=== PATIENT | female | born 1990 | race Caucasian/White ===

== ENCOUNTER 2016-05-22 16:19 | Emergency (ER) | payer BC, MEDICAID ==
[2016-05-22 17:48] VITALS: BP 124/61
--- NOTE | 2016-05-24 15:13 | UC ---
Sherwin Norris SooYoung, scribed for Lise Parada MD on 05/22/16 at 1716 . Complaint Female HPI - HPI Summary HPI Summary: A 26 y/o 7-week F presents to [facility] with c/o vaginal bleeding acute onset today. The discharge was bright red, has resolved and is back to being rust-colored. Pt has been having rust-colored spotting for the past few days and was seen at [place] [facility] on 05/17/16. Associated sx: diarrhea, mild abd cramping. Denies: dysuria, gestational diabetes. /A1. Secondary complaint of rash near L axilla onset about one week. [facility]: 04/04/2016. PSHx: back lipomas. - History Of Current Complaint Chief Complaint: UCGU Stated Complaint: 7 WKS AND SPOTTING Hx Obtained From: Patient Hx Last Menstrual Period: 12/21/15 Pain Intensity: 1 Pain Scale Used: 0-10 Numeric - Allergies/Home Medications Allergies/Adverse Reactions: Allergies Allergy/AdvReac Type Severity Reaction Status Date / Time No Known Allergies Allergy Verified 05/22/16 16:41 Home Medications: Home Medications Vitamin TAB* 1 tab PO DAILY 05/22/16 [History Confirmed 05/22/16] PMH/Surg Hx/FS Hx/Imm Hx Previously Healthy: No Endocrine History Of: Denies: Diabetes, Thyroid Disease Cardiovascular History Of: Denies: Cardiac Disorders, Hypertension, Pacemaker/ICD Respiratory History Of: Reports: Bronchitis Denies: COPD, Asthma GI/ History Of: Denies: Ulcer, Renal Disease Neurological History Of: Reports: Seizures Psychological History Of: Reports: Anxiety Cancer History Of: Denies: Breast Cancer - Surgical History Surgical History: Yes Surgery Procedure, Year, and Place: 06/17 IN [facility] LIPOMA REMOVED ON LEFT SIDE - Family History Known Family History: Positive: Hypertension, Diabetes, Other - copd Family History: NON CONTRIBUTORY - Social History Occupation: Unemployed Lives: With Family Alcohol Use: None Substance Use Type: None Smoking Status (MU): Former Smoker Type: Cigars Amount Used/How Often: "1 from time to time" Have You Smoked in the Last Year: Yes - Immunization History Most Recent Influenza Vaccination: never Most Recent Tetanus Shot: unsure Review of Systems Constitutional: Negative Skin: Rash - near L axilla ENT: Negative Respiratory: Negative Cardiovascular: Negative Gastrointestinal: Abdominal Pain - mild cramping, Diarrhea Genitourinary: Negative, Other - bright red vaginal discharge Motor: Negative Neurovascular: Negative Musculoskeletal: Negative Neurological: Negative Psychological: Negative All Other Systems Reviewed And Are Negative: Yes Physical Exam Triage Information Reviewed: Yes Appearance: Well-Nourished Vital Signs: Initial Vital Signs Temp 99.3 F 05/22/16 16:36 Pulse 78 05/22/16 16:36 Resp 16 05/22/16 16:36 BP 108/69 05/22/16 16:36 Pulse Ox 100 05/22/16 16:36 Vital Signs Reviewed: Yes Eye Exam: Normal ENT Exam: Normal Neck exam: Normal Respiratory Exam: Normal Respiratory: Positive: Chest non-tender, Lungs clear, Normal breath sounds, No respiratory distress, No accessory muscle use Cardiovascular Exam: Normal Cardiovascular: Positive: RRR, No Murmur, Pulses Normal, Brisk Capillary Refill Abdominal Exam: Normal - mild mid pelvic tenderness, no r/g. no cvat Bowel Sounds: Positive: Present Musculoskeletal Exam: Normal Neurological Exam: Normal Psychological Exam: Normal Skin Exam: Normal - Additional Comments Appearance: Well-Nourished Eye Exam: Normal ENT Exam: Normal Neck exam: Normal, no adenopathy appreciated Respiratory Exam: Chest non-tender, Lungs clear, Normal breath sounds, No respiratory distress, No accessory muscle use Cardiovascular Exam: Normal Cardiovascular: RRR, No Murmur, Pulses Normal - sitting up. heart rate correlates w left radial pulse, Brisk Capillary Refill Abdominal Exam: MILD TENDERNESS SUPRAPUBICALLY. Abdomen Description: No organomegaly, Soft Bowel Sounds: Present Musculoskeletal Exam: Normal Musculoskeletal: Strength Intact Neurological Exam: Normal: nonfocal, grossly intact Psychological Exam: Normal: conversing easily and appropriately Skin Exam: CIRCUMSCRIBED RED, NON-BLANCHING, DRY ERUPTION. SUSPICIOUS OF RINGWORM. Complaint Female Dx - Course Course Of Treatment: ucg: positive. UA: Negative, blood: ++, pH: 5, specific gravity: 1.005. Pt will need further evaluation / management that are needed in the ED. She does not want to go to [facility], but will go to [facility]. Pt expressly declined EMS, states she will drive to [facility]. Pt was instructed for rash to be addressed per [facility] / PCP. AMA signed (ems). I called the ED at [facility] to advise. Ms. Ramírez expresses some frustration about having to go to the ED, but also expresses understanding and agreement. Questions answered to the best of my ability. - Differential Dx/Diagnosis Provider Diagnoses: vag bleed - Physician Notifications Discussed Patient Care With: Spoke with MARIELA Connors at [facility]. Time Discussed With Above Provider: 17:24 Instructed by Provider To: Transfer Discharge - Discharge Plan Condition: Guarded Disposition: AGAINST MEDICAL ADVICE Discharge Disposition Comment: [facility] by car Referrals: Cr Barr MD [Primary Care Provider] - The documentation as recorded by the Sherwin padilla SooYoung accurately reflects the service I personally performed and the decisions made by me, Lise Parada MD.
== END 2016-05-22 17:25 | disposition left against medical advice (07) ==
LOC: UCEAST 16:19
DX: O20.9 Hemorrhage in early pregnancy, unspecified (principal); Z3A.01 Less than 8 weeks gestation of pregnancy; Z72.0 Tobacco use
CPT/HCPCS: 81002; 81025; 99212; G0463

== ENCOUNTER 2016-07-13 17:09 | Emergency (ER) | payer BC ==
[2016-07-13 17:37] VITALS: BP 116/69
--- NOTE | 2016-07-13 17:47 | UC ---
Laceration HPI - HPI Summary HPI Summary: Holding glass bowl when it broke. Sustained partial skin avulsion and laceration to palm of R hand. Last Tdap in 2009, pt does not want immunization today. - History Of Current Complaint Stated Complaint: HAND LACERATION Hx Obtained From: Patient Laceration Location: Hand Mechanism Of Injury: Sharp Trauma Onset/Duration: Sudden Onset Severity: Mild Aggravating Factors: Nothing - Allergies/Home Medications Allergies/Adverse Reactions: Allergies Allergy/AdvReac Type Severity Reaction Status Date / Time No Known Allergies Allergy Verified 07/13/16 17:38 Home Medications: Home Medications NK [No Home Medications Reported] 07/13/16 [History Confirmed 07/13/16] PMH/Surg Hx/FS Hx/Imm Hx Endocrine History Of: Denies: Diabetes, Thyroid Disease Cardiovascular History Of: Denies: Cardiac Disorders, Hypertension, Pacemaker/ICD Respiratory History Of: Reports: Bronchitis Denies: COPD, Asthma GI/ History Of: Denies: Ulcer, Renal Disease Neurological History Of: Reports: Seizures Psychological History Of: Reports: Anxiety Cancer History Of: Denies: Breast Cancer - Surgical History Surgical History: Yes Surgery Procedure, Year, and Place: 06/17 IN [facility] LIPOMA REMOVED ON LEFT SIDE - Family History Known Family History: Positive: Hypertension, Diabetes, Other - copd Family History: NON CONTRIBUTORY - Social History Lives: With Family Alcohol Use: Occasionally Substance Use Type: None Smoking Status (MU): Current Some Day Smoker Type: Cigars Amount Used/How Often: "1 from time to time" Have You Smoked in the Last Year: Yes - Immunization History Most Recent Influenza Vaccination: never Most Recent Tetanus Shot: unsure Review of Systems Constitutional: Negative Skin: Other - R hand lac Eyes: Negative ENT: Negative Respiratory: Negative Cardiovascular: Negative Gastrointestinal: Negative Genitourinary: Negative Motor: Negative Neurovascular: Negative Musculoskeletal: Negative Neurological: Negative Psychological: Negative All Other Systems Reviewed And Are Negative: Yes Physical Exam Triage Information Reviewed: Yes Appearance: Well-Appearing, No Pain Distress, Well-Nourished Vital Signs: Initial Vital Signs Temp 99.0 F 07/13/16 17:29 Pulse 96 07/13/16 17:29 Resp 22 07/13/16 17:29 BP 116/69 07/13/16 17:29 Pulse Ox 98 07/13/16 17:29 Vital Signs Reviewed: Yes Eye Exam: Normal Eyes: Positive: Conjunctiva Clear ENT Exam: Normal ENT: Positive: Normal ENT inspection, Hearing grossly normal, Pharynx normal, TMs normal Dental Exam: Normal Neck exam: Normal Neck: Positive: Supple, Nontender, No Lymphadenopathy Respiratory Exam: Normal Respiratory: Positive: Chest non-tender, Lungs clear, Normal breath sounds, No respiratory distress, No accessory muscle use Cardiovascular Exam: Normal Cardiovascular: Positive: RRR, No Murmur Musculoskeletal Exam: Normal Musculoskeletal: Positive: Strength Intact, ROM Intact Neurological Exam: Normal Neurological: Positive: Alert Psychological Exam: Normal Skin Exam: Other - 2cm partial skin avulsion, 1.5cm lac R palm of hand Laceration Repair - Laceration Repair 1 Description: Linear Laceration Size After Repair: Length (cm) - 1.5 Type Injection: Local Anesthesia Used: 2.0% Lido Cleansing Completed Via Routine Prep: Yes Irrigation With Pressure Irrigation Device: Yes Closure Material: Sutures Closure Method: Single Layer Suture Of: Skin Suture Type: Nylon - #5 5-0 Laceration Course/Dx - Differential Dx - Laceration/Wound Provider Diagnoses: R hand laceration repair Discharge - Discharge Plan Condition: Stable Disposition: HOME Additional Instructions: Please come back in 7 days for suture removal. Come back sooner if there is redness, swelling, increasing pain, or streaking from the area.
[2016-07-13] MEDS ORDERED: Lidocaine 2% PF* 5 ML VIAL ONE (17:48)
== END 2016-07-13 18:16 | disposition home or self-care (01) ==
LOC: UCEAST 17:09
DX: S61.411A Laceration without foreign body of right hand, initial encounter (principal); W25.XXXA Contact with sharp glass, initial encounter; Y93.9 Activity, unspecified; Y92.9 Unspecified place or not applicable; Z72.0 Tobacco use
CPT/HCPCS: 12002; 99211; G0463

== ENCOUNTER 2016-07-22 11:00 | Emergency (ER) | payer BC | END 2016-07-22 11:53 | disposition left against medical advice (07) | LOC: UCEAST 11:00 | DX: Z48.02 Encounter for removal of sutures (principal); Z53.21 Procedure and treatment not carried out due to patient leaving prior to being seen by health care provider ==

== ENCOUNTER 2016-08-16 19:48 | Emergency (ER) | payer BC, MEDICAID ==
[2016-08-16 20:24] VITALS: BP 118/59
[2016-08-16] MEDS ORDERED: Albuterol HFA INHALER* 8 gm MDI INH ONE (20:52)
[2016-08-16] MEDS ORDERED: predniSONE TAB* 20 MG PO ONE (20:52)
--- NOTE | 2016-08-16 20:58 | UC ---
Respiratory Complaint HPI - HPI Summary HPI Summary: patient has had increase SOB over the past few weeks, now she has trough breatheing with exertion - History of Current Complaint Chief Complaint: UCGeneralIllness Stated Complaint: CHEST CONGESTION Time Seen by Provider: 08/16/16 20:45 Hx Obtained From: Patient Hx Last Menstrual Period: 07/22/16 ?: No Onset/Duration: Sudden Onset, Lasting Weeks Timing: Constant Severity Initially: Moderate Severity Currently: Moderate Aggravating Factors: Exertion, Deep Breaths, Recumbent Position Alleviating Factors: Bronchodilator Associated Signs And Symptoms: Positive: Wheezing - Allergies/Home Medications Allergies/Adverse Reactions: Allergies Allergy/AdvReac Type Severity Reaction Status Date / Time No Known Allergies Allergy Verified 07/13/16 17:38 PMH/Surg Hx/FS Hx/Imm Hx Previously Healthy: Yes Endocrine History Of: Denies: Diabetes, Thyroid Disease Cardiovascular History Of: Denies: Cardiac Disorders, Hypertension, Pacemaker/ICD Respiratory History Of: Reports: Bronchitis Denies: COPD, Asthma GI/ History Of: Denies: Ulcer, Renal Disease Neurological History Of: Reports: Seizures Psychological History Of: Reports: Anxiety Cancer History Of: Denies: Breast Cancer - Surgical History Surgical History: Yes Surgery Procedure, Year, and Place: 06/17 IN [facility] LIPOMA REMOVED ON LEFT SIDE - Family History Known Family History: Positive: Hypertension, Diabetes, Other - copd Family History: NON CONTRIBUTORY - Social History Alcohol Use: Occasionally Substance Use Type: None Smoking Status (MU): Current Some Day Smoker Type: Cigars Amount Used/How Often: "1 from time to time" Have You Smoked in the Last Year: Yes - Immunization History Most Recent Influenza Vaccination: never Most Recent Tetanus Shot: unsure Review of Systems Constitutional: Negative Skin: Negative Eyes: Negative ENT: Negative Respiratory: Shortness Of Breath, Cough Cardiovascular: Negative Gastrointestinal: Negative Genitourinary: Negative Motor: Negative Neurovascular: Negative Musculoskeletal: Negative Neurological: Negative Psychological: Negative All Other Systems Reviewed And Are Negative: Yes Physical Exam Triage Information Reviewed: Yes Appearance: Well-Appearing, Well-Nourished, Pain Distress Vital Signs: Initial Vital Signs Temp 99.1 F 08/16/16 20:19 Pulse 85 08/16/16 20:19 Resp 18 08/16/16 20:19 BP 118/59 08/16/16 20:19 Pulse Ox 99 08/16/16 20:19 Vital Signs Reviewed: Yes Eye Exam: Normal Eyes: Positive: Conjunctiva Clear ENT: Positive: Hearing grossly normal, Pharyngeal erythema, TM bulging Dental Exam: Normal Neck exam: Normal Neck: Positive: Supple, Nontender, No Lymphadenopathy Respiratory: Positive: Chest non-tender, No accessory muscle use, Respiratory distress - mild, Decreased breath sounds, Wheezing, Inspiration Cardiovascular Exam: Normal Cardiovascular: Positive: RRR, No Murmur, Pulses Normal Abdominal Exam: Normal Abdomen Description: Positive: Nontender, No Organomegaly, Soft Bowel Sounds: Positive: Present Musculoskeletal Exam: Normal Musculoskeletal: Positive: Strength Intact, ROM Intact, No Edema Neurological Exam: Normal Neurological: Positive: Alert, Muscle Tone Normal Psychological Exam: Normal Skin Exam: Normal UC Diagnostic Evaluation - Laboratory O2 Sat by Pulse Oximetry: 99 Respiratory Course/Dx - Course Course Of Treatment: hx obtained, exam performed, meds reviewed, prednisone and albuterol prescribed. - Differential Dx/Diagnosis Differential Diagnosis/HQI/PQRI: Asthma, Bronchitis, Influenza, Laryngitis, Sinusitis Provider Diagnoses: bronchospasm Discharge - Discharge Plan Condition: Stable Disposition: HOME Prescriptions: predniSONE TAB* [Deltasone TAB*] 40 mg PO DAILY #12 tab Patient Education Materials: Bronchospasm (ED) Forms: *Work Release Additional Instructions: 1. take the medications as prescribed. 2. Follow up with any worsening symptoms
== END 2016-08-16 21:00 | disposition home or self-care (01) ==
LOC: UCEAST 19:48
DX: J98.01 Acute bronchospasm (principal); R56.9 Unspecified convulsions; F41.9 Anxiety disorder, unspecified; F17.210 Nicotine dependence, cigarettes, uncomplicated
CPT/HCPCS: 99212; A9270-GY; G0463; J7512

== ENCOUNTER 2016-12-18 | Emergency (ER) | payer BC, MEDICAID, OTHER ==
[2016-12-18] MEDS ORDERED: Tetan/Diph/Pertus SYR(Tdap)* 0.5 ML SYR(BOOSTRIX) use SYR IM ONE (02:51)
[2016-12-18] MEDS ORDERED: Lidocaine 1% MDV 20 ML INJ ONE (02:55)
[2016-12-18] MEDS ORDERED: Lidocaine 1% INJ* 10 MG/ML 30 ML SDV ONE (05:03)
[2016-12-18] MEDS ORDERED: Acetaminophen TAB* 325 MG PO ONE (06:36)
--- NOTE | 2016-12-18 06:38 | ED ---
Violette Norris Rebecca, scribed for Jamison Crabtree MD on 12/18/16 at 0259 . Head Injury - HPI Summary HPI Summary: Pt is a 26 y/o F who is 18-19 weeks who presents to ED s/p fall. At approximately 2300 tonight the pt was arguing with somebody on a set of outdoor stairs. She abruptly turned around to start walking the other direction when she slipped on the steps. Negative LOC. Pt notes vision loss in the L eye immediately after the fall which has resolved. Pt currently c/o mild R lumbar back pain, slight abdominal cramping, and R thumb pain. Abdominal cramping began a few minutes prior to evaluation. Additionally c/o frontal laceration s/ p fall. Denies neck pain. Right hand dominant. Last Tetanus shot unknown. Blood type is O positive. - History Of Current Complaint Chief Complaint: EDGeneral Stated Complaint: HEAD LAC Time Seen by Provider: 12/18/16 02:37 Hx Obtained From: Patient Hx Last Menstrual Period: 07/22/16 Onset/Duration: Traumatic - Fall, Still Present Onset of Pain: Hours, Prior to Arrival Severity Initially: Moderate Pain Intensity: 5 Pain Scale Used: 0-10 Numeric Location of Head Injury: Frontal Aggravating Factor(s): Other: - Nothing Alleviating Factor(s): Other: - Nothing Associated Signs And Symptoms: Other: - R lumbar back pain, slight abdominal cramping and R thumb pain. - Allergies/Home Medications Allergies/Adverse Reactions: Allergies Allergy/AdvReac Type Severity Reaction Status Date / Time No Known Allergies Allergy Verified 12/18/16 00:12 PMH/Surg Hx/FS Hx/Imm Hx Endocrine/Hematology History: Denies: Hx Diabetes, Hx Thyroid Disease Cardiovascular History: Denies: Hx Hypertension, Hx Pacemaker/ICD Respiratory History: Denies: Hx Asthma, Hx Chronic Obstructive Pulmonary Disease (COPD) GI History: Denies: Hx Ulcer History: Denies: Hx Renal Disease Sensory History: Denies: Hx Hearing Aid Neurological History: Reports: Hx Seizures Psychiatric History: Reports: Hx Anxiety Denies: Hx Panic Disorder - Cancer History Hx Chemotherapy: No Hx Radiation Therapy: No - Surgical History Surgery Procedure, Year, and Place: 06/17 IN [facility] LIPOMA REMOVED ON LEFT SIDE Infectious Disease History: No Infectious Disease History: Reports: History Other Infectious Disease - herpes Denies: Hx Clostridium Difficile, Hx Hepatitis, Hx Human Immunodeficiency Virus (HIV), Hx of Known/Suspected MRSA, Hx Shingles, Hx Tuberculosis, Hx Known/ Suspected VRE, Hx Known/Suspected VRSA, Traveled Outside the [place] in Last 30 Days - Family History Known Family History: Positive: Hypertension, Diabetes, Other - copd - Social History Alcohol Use: Occasionally Substance Use Type: Reports: None Smoking Status (MU): Current Some Day Smoker Type: Cigars Amount Used/How Often: "1 from time to time" Have You Smoked in the Last Year: Yes Review of Systems Positive: Other - L eye vision loss - resolved Positive: Other - Mild abdominal cramping Positive: Other - Mild R lumbar back pain, R thumb pain; NEGATIVE: neck pain Positive: Other - Frontal laceration Neurological: Other - NEGATIVE: LOC All Other Systems Reviewed And Are Negative: Yes Physical Exam - Summary Physical Exam Summary: The patient is well-nourished in no acute distress and in no acute pain. The skin is warm and dry and skin color reflects adequate perfusion. HEENT: The head has a 4.5 cm linear laceration on the lfet forehead that extends into the scalp that appears to be down to the subcutaneous fat, about 2 mm wide with no crepitus, no deformity, no smith sign and no racoon sign. The pupils are equal and reactive. The conjunctivae are clear and without drainage. Nares are patent and without drainage. Mouth reveals moist mucous membranes and the throat is without erythema and exudate. The external ears are intact. The ear canals are patent and without drainage. The tympanic membranes are intact with no hemotympanum. Neck is supple with full range of motion and non-tender. There is no reproducible pain. Respiratory: Chest is non-tender. Lungs are clear to auscultation and breath sounds are symmetrical and equal. Cardiovascular: Hear is regular rate and rhythm. There is no murmur or rub auscultated. There is no peripheral edema and pulses are symmetrical and equal. Abdomen: The abdomen is soft and non-tender. It appears that there is a fundal height around the umbilicus. There are normal bowel sounds heard in all four quadrants and there is no organomegaly palpated. Musculoskeletal: Some abrasions on the R side of her lower lumbar area with no reproducible pain. There is no pain in the thoracic or cervical spine. She is not tender over the pelvis. Her thenar eminance on the right humb is markedly edematous with FROM and there morel snot appear to be any ligament laxity on the medial or lateral aspects. There is no stepoff noted and there is good ROM with good light touch sensation. Abrasion and ecchymosis on the R knee but with FROM and pulses are noted distally. There is good capillary refill. There is no peripheral edema or calf tenderness elicited. Neurological: Patient is alert and oriented to person, place and time. The patient has symmetrical motor strength in all four extremities. Psychiatric: The patient has an appropriate affect and does not exhibit any anxiety or depression. Triage Information Reviewed: Yes Vital Signs On Initial Exam: Initial Vitals Temp Pulse Resp BP Pulse Ox 97.8 F 89 16 133/67 97 12/18/16 00:05 12/18/16 00:05 12/18/16 00:05 12/18/16 00:05 12/18/16 00:05 Vital Signs Reviewed: Yes Procedures - Laceration/Wound Repair 1 Location: head - Went down to the galea. The galea was not intacted so could not be repaired. Palpated the scalp and there are no step offs or deformity Description: Linear Anesthesia: 1.0%, Lido Length, Depth and Shape: 1 cm deep, about 0.5 cm wide and 4.5 cm long Closure: Multilayer - Close the subcutaneous area with 4.0 Vicryl x4 interurupted sutures and closed the skin with 5.0 prolene x18 running sutures Suture Type: Prolene - skin closure x18, Vicryl - Subcutaneous closure with 4.0 vicyl x4 Diagnostics - Vital Signs Vital Signs Temp Pulse Resp BP Pulse Ox 12/18/16 00:05 97.8 F 89 16 113/67 97 - Laboratory Lab Statement: Any lab studies that have been ordered have been reviewed, and results considered in the medical decision making process. - Ultrasound No standard instances Ultrasound Interpretation Completed By: Radiologist - Ultrasound interpretation pending, see [employer]. Head Injury Course/Dx Assessment/Plan: Pt is a 26 y/o F who is 18-19 weeks who presents to ED s/p fall. At approximately 2300 tonight the pt was arguing with somebody on a set of outdoor stairs. She abruptly turned around to start walking the other direction when she slipped on the steps. Negative LOC. Pt notes vision loss in the L eye immediately after the fall which has resolved. Pt currently c/o mild R lumbar back pain, slight abdominal cramping, and R thumb pain. Abdominal cramping began a few minutes prior to evaluation. Additionally c/o frontal laceration s/p fall. Denies neck pain. Right hand dominant. Last Tetanus shot unknown. Blood type is O positive. Laceration repair procedure note above. heart tone 132. In ED course, pt received Boostrix. Pt will be D/C to home with Dx of right humb injury, scalp laceration and prenancy with a follow up with her PCP for suture removal pending US results. She understands and agrees. Elevated BP noted and advised to f/u. - Diagnoses Differential Diagnosis/HQI/PQRI: Laceration Provider Diagnoses: Injury of right thumb, Scalp laceration, , abrasion right knee Discharge - Discharge Plan Condition: Stable Disposition: HOME Patient Education Materials: Care For Your Stitches (ED), Laceration (ED), Acute Wound Care (ED) Referrals: Cr Barr MD [Primary Care Provider] - (Follow up in 5 days for suture removal. ) Additional Instructions: Cleanse the wound 2 times per day with soap and water. Apply antibiotic ointment and cold compress/ice. Take Tylenol as directed for pain. Follow up with your primary care physician in 5 days for suture removal. The documentation as recorded by the Violette padilla Rebecca accurately reflects the service I personally performed and the decisions made by , Jamison Crabtree MD.
--- NOTE | 2016-12-18 08:42 | RAD ---
INDICATION: Early . Patient fell. Assess viability. Request for limited patency evaluation. COMPARISON: None TECHNIQUE: Transabdominal imaging was performed as part of a limited evaluation. A anatomic survey was not performed. FINDINGS: There is a single intrauterine gestation in cephalic presentation with confirmation of cardiac activity of 130 bpm. There is movement. The amniotic fluid index is normal measuring 13.3. The cervix is closed. The cervical length is measured approximately 3 cm which may represent underestimation. This can be reassessed at the time of the anatomic survey. The estimated gestational age based on biparietal diameter, head circumference, abdominal circumference, and femur length corresponds to 19 weeks 1 day, 19 weeks 0 day, 18 weeks 2 days, and 18 weeks 2 days resulting in a composite value of 18 weeks 5 days. IMPRESSION: INTRAUTERINE AND 18 WEEKS 5 DAYS WITH CONFIRMATION OF CARDIAC ACTIVITY.
[2016-12-18 09:03] VITALS: BP 105/60
--- NOTE | 2016-12-18 09:45 | ED ---
Jason Norris Alfonso, scribed for Roverto Senior MD on 12/18/16 at 0904 . Progress - Progress Note Progress Note: This patient was signed out from Dr. Crabtree, pending disposition, awaiting US. US reveals INTRAUTERINE AND 18 WEEKS 5 DAYS WITH CONFIRMATION OF CARDIAC ACTIVITY. ED physician has reviewed this radiology report and agrees. The patients condition is stable and will be discharged to home. - Results/Orders Results/Orders: US reveals INTRAUTERINE AND 18 WEEKS 5 DAYS WITH CONFIRMATION OF CARDIAC ACTIVITY. ED physician has reviewed this radiology report and agrees. Course/Dx - Diagnoses Provider Diagnoses: Injury of right thumb, Scalp laceration, , abrasion right knee The documentation as recorded by the odiliaibJason coombs Alfonso accurately reflects the service I personally performed and the decisions made by Parrish barnes Richard L, MD.
== END 2016-12-18 09:33 | disposition home or self-care (01) ==
LOC: ED
DX: S80.211A Abrasion, right knee, initial encounter (principal); S01.01XA Laceration without foreign body of scalp, initial encounter; M54.5 Low back pain; W19.XXXA Unspecified fall, initial encounter; Y93.9 Activity, unspecified; Y92.9 Unspecified place or not applicable; Z72.0 Tobacco use; Z34.92 Encounter for supervision of normal pregnancy, unspecified, second trimester
CPT/HCPCS: 76815; 90471; 90715; 99282; A9270-GY; J2001

== ENCOUNTER → 2017-03-17 19:05 | Emergency (ER) | payer OTHER ==
[~2017-03-17 19:05] MED LIST: Acetaminophen TAB* 325 MG PO ONE; NS 0.9% 1000 ML* 1,000 ML IV SCH
[2017-03-17 21:03] LABS: Hematocrit 39 % (35-47); Mean Corpuscular HGB Conc 34 g/dl (31-36); Mean Corpuscular Hemoglobin 29 pg (27-31); Mean Corpuscular Volume 85 fL (80-97); Mean Platelet Volume 8 um3 (7.4-10.4); Red Blood Count 4.51 10^6/ul (4.0-5.4); Red Cell Distribution Width 13 % (10.5-15); White Blood Count 12.5 10^3/ul (3.5-10.8)
[2017-03-17 21:05] LABS: Urine Bilirubin Negative (Negative); Urine Glucose Negative (Negative); Urine Nitrite Negative (Negative)
[2017-03-17 21:16] LABS: Albumin 3.5 g/dL (3.2-5.2); BUN/Creatinine Ratio 16.1 (8-20); Calcium 9.7 mg/dL (8.6-10.3); EGFR African American 148.5 (>60); EGFR Non-African American 115.5 (>60); Globulin 2.9 g/dL (2-4); Total Bilirubin 0.3 mg/dL (0.2-1.0); Total Protein 6.4 g/dL (6.4-8.9)
[2017-03-17 22:44] VITALS: BP 123/74
--- NOTE | 2017-03-18 01:06 | ED ---
Jason Norris Alfonso, scribed for Alexx Pedroza MD on 03/17/17 at 2244 . Progress - Progress Note Progress Note: This patient was signed out from Dr. Quezada, pending disposition, awaiting US. Reevaluation at 2237: Patients pain is largely unchanged. Pain is in bilateral LQ and is crampy in nature. She does not remember how her contractions felt in the past. Will consult surgery. Will consider transfer for possible abdominal MRI. Consulted Dr. Childress (surgeon) at 2240 who recommended OB consultation and official results of US. Suggests possible period of observation. Consulted Dr. Elliott (OBGYN) at 2246 who was made aware of workup. Will re- contact with official result of NST stress test. Appendix US reveals, per radiologist, There are no masses or collections visualized in the RLQ. The appendix was not visualized. Cannot rule out acute appendicitis. ED physician has reviewed this radiology report and agrees. US reveals, per radiologist, There is a single live injury gestation in cephalic presentation. heart rate 129 BPM. Approximate age by composite US measurements is 31 weeks, one day. Estimated weight 1543 g. movement noted by the US technologist in real-time. Amniotic fluid volume is subjectively adequate. Fundal placenta without abruption or previa. The cervix is closed and is foreshortened measuring 2.1 cm. ED physician has reviewed this radiology report and agrees. Consulted Dr. Elliott (OBGYN) at 0058 who agrees to admit. Informed of tracing results. The patients condition is stable and will be admitted to OB with Dx of uterine contracts. Course/Dx - Diagnoses Provider Diagnoses: Uterine contractions The documentation as recorded by the Jason padilla Alfonso accurately reflects the service I personally performed and the decisions made by Yovany barnes Dong, MD.
--- NOTE | 2017-03-18 07:48 | RAD ---
INDICATION: 37 week patient with abdominal pain. Evaluate for acute appendicitis COMPARISON: None TECHNIQUE: Transverse and longitudinal scans of the right lower quadrant were performed utilizing grayscale and color Doppler imaging. FINDINGS: The appendix is not visualized and therefore acute appendicitis cannot be excluded on the basis of this study. Suggest clinical evaluation and management. There are no masses or fluid collections in the right lower quadrant. IMPRESSION: INDETERMINATE EXAMINATION THE APPENDIX CANNOT BE LOCATED
--- NOTE | 2017-03-18 07:57 | RAD ---
INDICATION: 31 week with lower abdominal pain. Request for limited evaluation. COMPARISON: sonogram December 28, 2016 TECHNIQUE: Real-time transabdominal scans were obtained for the purposes of limited evaluation. This is not a anatomic study. FINDINGS: There is a single intrauterine gestation in cephalic presentation with movement and cardiac activity of 129 beats for minute. Amniotic fluid index is normal. The cervix is closed measuring 2.7 cm. The estimated gestational age based on biparietal diameter, head circumference, abdominal scars, and femur length corresponds to 33 weeks 0 days, 31 weeks 2 days, 30 weeks 2 days, and 29 weeks 4 days resulting a composite value of 31 weeks 1 day. There is been normal interval growth. weight is 3 lbs. 6 oz. IMPRESSION: Intrauterine gestation at 31 weeks 3 days with normal interval growth and confirmation of cardiac activity. Mild foreshortening of the cervical length.
== END | disposition other institution (70) ==
LOC: ED 19:05
DX: O62.9 Abnormality of forces of labor, unspecified (principal); Z3A.31 31 weeks gestation of pregnancy
CPT/HCPCS: 36415; 76705; 76815; 80053; 81003; 85025; 96360; 99282; A9270-GY

== ENCOUNTER 2017-04-03 11:25 | Emergency (ER) | payer OTHER ==
[2017-04-03 15:47] VITALS: BP 114/65
--- NOTE | 2017-04-03 15:56 | UC ---
Respiratory Complaint HPI - HPI Summary HPI Summary: Patient presents with complaints of 1-2 week cough prior to todays visit, she reports that those symptoms resolved. She states last night she developed generalized body aches, and is worried she has the flu. She denies fever, chills , vomiting, diarrhea. She reports she is eigth months , G@,P1, and denies abdominal pain, vaginal discharge or bleeding, dysuria, hematuria. - History of Current Complaint Chief Complaint: UCGeneralIllness Stated Complaint: SINUS CONGESTION, AND ACHES Time Seen by Provider: 04/03/17 15:44 Hx Obtained From: Patient Hx Last Menstrual Period: 07/22/16 Onset/Duration: Gradual Onset, Lasting Days Timing: Constant Severity Initially: Mild Severity Currently: Mild Associated Signs And Symptoms: Positive: Negative - Risk Factors Pulmonary Embolism Risk Factors: Cardiac Risk Factors: Negative Pseudomonas Risk Factors: Negative Tuberculosis Risk Factors: Negative - Allergies/Home Medications Allergies/Adverse Reactions: Allergies Allergy/AdvReac Type Severity Reaction Status Date / Time No Known Allergies Allergy Verified 04/03/17 15:44 PMH/Surg Hx/FS Hx/Imm Hx Previously Healthy: Yes - Surgical History Surgical History: Yes Surgery Procedure, Year, and Place: 06/17 IN [facility] LIPOMA REMOVED ON LEFT SIDE - Family History Known Family History: Positive: Hypertension, Diabetes, Other - copd Family History: NON CONTRIBUTORY - Social History Occupation: Employed Full-time Lives: Alone Alcohol Use: None Substance Use Type: None Smoking Status (MU): Former Smoker Type: Cigars Amount Used/How Often: "1 from time to time" Have You Smoked in the Last Year: Yes Household Exposure Type: Cigarettes - Immunization History Most Recent Influenza Vaccination: never Most Recent Tetanus Shot: unsure Review of Systems Constitutional: Fatigue Skin: Negative Eyes: Negative ENT: Negative Respiratory: Negative Cardiovascular: Negative Gastrointestinal: Negative Genitourinary: Negative Motor: Negative Neurovascular: Negative Musculoskeletal: Myalgia Neurological: Negative Psychological: Negative Is Patient Immunocompromised?: No All Other Systems Reviewed And Are Negative: Yes Physical Exam Triage Information Reviewed: Yes Appearance: Well-Appearing Vital Signs: Initial Vital Signs Temp 97.9 F 04/03/17 15:44 Pulse 103 04/03/17 15:44 Resp 20 04/03/17 15:44 BP 114/65 04/03/17 15:44 Pulse Ox 99 04/03/17 15:44 Vital Signs Reviewed: Yes Eye Exam: Normal ENT Exam: Normal Neck exam: Normal Neck: Positive: 1 Respiratory Exam: Normal Cardiovascular Exam: Normal Skin Exam: Normal UC Diagnostic Evaluation - Laboratory O2 Sat by Pulse Oximetry: 99 Respiratory Course/Dx - Course Course Of Treatment: Patient presents with complaints of generalized fatigue, malaise, x 1 day. she states she is eight months and continues to have good movment. She denies any vaginal discharge, bleeding or dysuria. The Influenza was positive for Influenza A, she was treated with tamiflu, taken out of work for 2 days. She had noramlVS and was discharge home in stable condition. - Differential Dx/Diagnosis Differential Diagnosis/HQI/PQRI: Other - influenza A Provider Diagnoses: influenza a Discharge - Discharge Plan Condition: Stable Disposition: HOME Prescriptions: Oseltamivir CAP* [Tamiflu CAP*] 75 mg PO DAILY #5 cap Patient Education Materials: Influenza (ED) Forms: *Work Release Referrals: Cr Barr MD [Primary Care Provider] -
== END 2017-04-03 16:10 | disposition home or self-care (01) ==
LOC: UCEAST 11:25
DX: O98.513 Other viral diseases complicating pregnancy, third trimester (principal); J10.1 Influenza due to other identified influenza virus with other respiratory manifestations; Z3A.32 32 weeks gestation of pregnancy; Z87.891 Personal history of nicotine dependence
CPT/HCPCS: 87502; 99212; G0463

== ENCOUNTER 2017-05-18 01:49 | Inpatient (IN) | payer OTHER ==
[2017-05-18] MEDS ORDERED: Penicillin G Potassium IV* 5,000,000 UNITS in NS 0.9% 100 ML* 100 ML IVPB ONE (03:00)
[2017-05-18 03:32] LABS: ABS Basophils 0 10^3/ul (0-0.2); ABS Eosinophils 0.1 10^3/ul (0-0.6); ABS Lymphocytes 1.7 10^3/ul (1.0-4.8); ABS Monocytes 0.8 10^3/ul (0-0.8); ABS Neutrophils 12.9 10^3/ul (1.5-7.7); ABS Nucleated RBC 0 10^3/ul; Eosinophil % 0.4 % (0-6); Hematocrit 38 % (35-47); Hemoglobin 12.9 g/dl (12.0-16.0); Mean Corpuscular HGB Conc 34 g/dl (31-36); Mean Corpuscular Hemoglobin 29 pg (27-31); Mean Corpuscular Volume 84 fL (80-97); Mean Platelet Volume 8 um3 (7.4-10.4); Nucleated Red Blood Cells % 0; Platelet Count 257 10^3/ul (150-450); Red Blood Count 4.48 10^6/ul (4.0-5.4); Red Cell Distribution Width 14 % (10.5-15); White Blood Count 15.5 10^3/ul (3.5-10.8)
[2017-05-18] MEDS ORDERED: Witch Hazel PAD* JAR TOPICAL PRN (05:05)
[2017-05-18] MEDS ORDERED: Dibucaine 1% 28.35 GM TUBE PR PRN (05:05)
[2017-05-18] MEDS ORDERED: Glycerin ADULT SUPP PR PRN (05:05)
[2017-05-18] MEDS ORDERED: Ibuprofen TAB* 600 MG ONE (05:27)
[2017-05-18] MEDS ORDERED: Oxytocin in LR* 20 UNITS/1,000 ML BAG IVPB SCH (06:00)
[2017-05-18] MEDS ORDERED: Penicillin G Potassium IV* 2,500,000 UNITS in NS 0.9% 100 ML* 100 ML IVPB SCH (07:30)
[2017-05-18] MEDS: Docusate CAP* 100 MG PO SCH ×3 (09:15→21:00)
[2017-05-18] MEDS: Simethicone TAB* 80 MG TAB.CHEW PO SCH (12:14)
[2017-05-18] MEDS: Ibuprofen TAB* 600 MG PO PRN ×2 (12:14→19:55)
[2017-05-19] MEDS: Ibuprofen TAB* 600 MG PO PRN ×3 (04:58→23:15)
[2017-05-19 08:00] LABS: ABS Basophils 0.1 10^3/ul (0-0.2); ABS Eosinophils 0.1 10^3/ul (0-0.6); ABS Lymphocytes 2.3 10^3/ul (1.0-4.8); ABS Monocytes 0.6 10^3/ul (0-0.8); ABS Neutrophils 8.4 10^3/ul (1.5-7.7); ABS Nucleated RBC 0 10^3/ul; Eosinophil % 0.9 % (0-6); Hematocrit 39 % (35-47); Hemoglobin 12.6 g/dl (12.0-16.0); Lymphocyte % 19.9 % (25-47); Mean Corpuscular HGB Conc 32 g/dl (31-36); Mean Corpuscular Hemoglobin 28 pg (27-31); Mean Corpuscular Volume 89 fL (80-97); Mean Platelet Volume 9 um3 (7.4-10.4); Nucleated Red Blood Cells % 0.1; Platelet Count 181 10^3/ul (150-450); Red Blood Count 4.43 10^6/ul (4.0-5.4); Red Cell Distribution Width 14 % (10.5-15); White Blood Count 11.5 10^3/ul (3.5-10.8)
[2017-05-19] MEDS ORDERED: Ferrous Gluconate TAB* 324 MG TAB PO SCH (09:00)
[2017-05-19] MEDS: Acetaminophen TAB* 325 MG PO PRN ×2 (09:52→17:13)
[2017-05-19] MEDS: Docusate CAP* 100 MG PO SCH ×2 (09:53→18:31)
[2017-05-19 20:33] VITALS: BP 118/64
[2017-05-20] MEDS: Acetaminophen TAB* 325 MG PO PRN ×2 (03:17→07:56)
[2017-05-20] MEDS: Docusate CAP* 100 MG PO SCH (08:42)
== END 2017-05-20 10:49 | disposition home or self-care (01) | DRG 560 ==
LOC: MCHOBOUT 01:49 → MCHOB 02:32
PROVIDERS: ADMIT Midwife; ATTEND Midwife
PROC: 10E0XZZ Delivery of Products of Conception, External Approach (ICD-10-PCS; principal; 2017-05-18)
PROC: 4A1HX4Z Monitoring of Products of Conception, Cardiac Electrical Activity, External Approach (ICD-10-PCS; 2017-05-18)
DX: O69.81X0 Labor and delivery complicated by cord around neck, without compression, not applicable or unspecified (principal); O98.52 Other viral diseases complicating childbirth; O99.824 Streptococcus B carrier state complicating childbirth; B00.9 Herpesviral infection, unspecified; Z3A.39 39 weeks gestation of pregnancy; Z37.0 Single live birth; O71.89 Other specified obstetric trauma
CPT/HCPCS: 36415; 85025; 86850; 86900; 86901; A9270-GY; J2540

== ENCOUNTER 2017-11-29 12:31 | Emergency (ER) | payer BC, MEDICAID, OTHER ==
[2017-11-29 13:23] VITALS: BP 102/71
[2017-11-29] MEDS ORDERED: Azithromycin TAB* 250 MG PO ONE (13:35)
[2017-11-29] MEDS ORDERED: cefTRIAXone VIAL(*) 250 MG VIAL IM ONE (13:35)
[2017-11-29] MEDS ORDERED: Lidocaine 1% MPF* 2 ML VIAL INJ ONE (13:35)
--- NOTE | 2017-11-29 13:48 | ED ---
GI/ HPI - HPI Summary HPI Summary: 27F presents for treatment for gonorrhea. She states her boyfriend was treated for gonorrhea yesterday. She states she has been having vaginal itching for past couple days. She states that she thought she had a yeast infection until her boyfriend got tested. She is also requesting HIV hepatitis, and syphilis testing. no medical conditions. started period two days ago. no dysuria, fever or pelvic pain. structural analysis engineer called and said does not need further testing for vaginal cultures. - History of Current Complaint Chief Complaint: UCGU Time Seen by Provider: 11/29/17 13:25 Stated Complaint: PERSONAL Hx Last Menstrual Period: now Pain Intensity: 0 - Allergy/Home Medications Allergies/Adverse Reactions: Allergies Allergy/AdvReac Type Severity Reaction Status Date / Time No Known Allergies Allergy Verified 11/29/17 13:23 PMH/Surg Hx/FS Hx/Imm Hx Endocrine/Hematology History: Denies: Hx Diabetes, Hx Thyroid Disease Cardiovascular History: Denies: Hx Hypertension, Hx Pacemaker/ICD Respiratory History: Denies: Hx Asthma, Hx Chronic Obstructive Pulmonary Disease (COPD) GI History: Denies: Hx Ulcer History: Denies: Hx Renal Disease Sensory History: Denies: Hx Hearing Aid Neurological History: Reports: Hx Seizures Psychiatric History: Reports: Hx Anxiety Denies: Hx Panic Disorder - Cancer History Hx Chemotherapy: No Hx Radiation Therapy: No - Surgical History Surgery Procedure, Year, and Place: 06/17 IN [facility] LIPOMA REMOVED ON LEFT SIDE Infectious Disease History: No Infectious Disease History: Reports: History Other Infectious Disease - herpes Denies: Hx Clostridium Difficile, Hx Hepatitis, Hx Human Immunodeficiency Virus (HIV), Hx of Known/Suspected MRSA, Hx Shingles, Hx Tuberculosis, Hx Known/ Suspected VRE, Hx Known/Suspected VRSA, Traveled Outside the in Last 30 Days - Family History Known Family History: Positive: Hypertension, Diabetes, Other - copd Family History: NON CONTRIBUTORY - Social History Alcohol Use: None Substance Use Type: Reports: None Smoking Status (MU): Former Smoker Type: Cigars Amount Used/How Often: "1 from time to time" Have You Smoked in the Last Year: Yes Review of Systems Negative: Fever Negative: Chest Pain Negative: Shortness Of Breath Positive: other - vaginal itching All Other Systems Reviewed And Are Negative: Yes Physical Exam Triage Information Reviewed: Yes Vital Signs On Initial Exam: Initial Vitals Temp Pulse Resp BP Pulse Ox 98.4 F 75 18 102/71 99 11/29/17 13:16 11/29/17 13:16 11/29/17 13:16 11/29/17 13:16 11/29/17 13:16 Vital Signs Reviewed: Yes Appearance: Positive: Well-Appearing Skin: Positive: Warm, Dry Head/Face: Positive: Normal Head/Face Inspection Eyes: Positive: Normal, Conjunctiva Clear ENT: Positive: Pharynx normal Respiratory/Lung Sounds: Positive: Clear to Auscultation, Breath Sounds Present Cardiovascular: Positive: Normal, RRR Abdomen Description: Positive: Nontender, Soft Bowel Sounds: Positive: Present Musculoskeletal: Positive: Normal Neurological: Positive: Normal Psychiatric: Positive: Normal Diagnostics - Vital Signs Vital Signs Temp Pulse Resp BP Pulse Ox 11/29/17 13:16 98.4 F 75 18 102/71 99 - Laboratory Lab Statement: Any lab studies that have been ordered have been reviewed, and results considered in the medical decision making process. GIGU Course/Dx - Course Course Of Treatment: 27F presents for treatment for gonorrhea. She states her boyfriend was treated for gonorrhea yesterday. She states she has been having vaginal itching for past couple days. She states that she thought she had a yeast infection until her boyfriend got tested. She is also requesting HIV hepatitis, and syphilis testing. no medical conditions. started period two days ago. no dysuria, fever or pelvic pain. on exam nontender abd. gave rocephin and azithromycin. patient understand and agrees with plan. - Diagnoses Differential Diagnoses - Female: Pelvic Inflammatory Disease, STD, Urinary Tract Infection Provider Diagnoses: Gonorrhea Discharge - Sign-Out/Discharge Documenting (check all that apply): Patient Departure All imaging exams completed and their final reports reviewed: No Studies - Discharge Plan Condition: Good Disposition: HOME Patient Education Materials: Gonorrhea (ED) Referrals: Cr Barr MD [Primary Care Provider] - Additional Instructions: Avoid sex for next 7 days Return to ED if develop fever or any new or worsening symptoms - Billing Disposition and Condition Condition: GOOD Disposition: Home
[2017-11-29] MEDS ORDERED: Lidocaine 1%* 5 ML VIAL ONE (14:05)
== END 2017-11-29 14:40 | disposition home or self-care (01) ==
LOC: UCEAST 12:31
DX: A54.9 Gonococcal infection, unspecified (principal); Z87.891 Personal history of nicotine dependence
CPT/HCPCS: 96372; 99212; A9270-GY; G0463; J0696

== ENCOUNTER → 2018-10-10 02:43 | Emergency (ER) | payer OTHER ==
[~2018-10-10 02:43] MED LIST changes: -Acetaminophen TAB* 325 MG PO ONE; +Clindamycin CAP* 150 MG PO ONE; -NS 0.9% 1000 ML* 1,000 ML IV SCH; +oxyCODONE/Acetamin 5/325 MG* TAB PO ONE
--- NOTE | 2018-10-10 03:31 | ED ---
Throat Pain/Nasal Congestion - HPI Summary HPI Summary: This patient is a 28 year old F presenting to ED with a chief complaint of R top tooth pain since four days ago. Patient has been taking Motrin, but it does not help. The patient rates the pain 8/10 in severity. Symptoms aggravated by nothing. Symptoms alleviated by nothing. Patient denies fever. - History of Current Complaint Chief Complaint: EDDentalPain Time Seen by Provider: 10/10/18 03:22 Hx Obtained From: Patient Onset/Duration: Lasting Days - 4 days ago, Still Present Severity: Severe - Allergies/Home Medications Allergies/Adverse Reactions: Allergies Allergy/AdvReac Type Severity Reaction Status Date / Time No Known Allergies Allergy Verified 10/10/18 03:47 PMH/Surg Hx/FS Hx/Imm Hx Endocrine/Hematology History: Denies: Hx Diabetes, Hx Thyroid Disease Cardiovascular History: Denies: Hx Hypertension, Hx Pacemaker/ICD Respiratory History: Denies: Hx Asthma, Hx Chronic Obstructive Pulmonary Disease (COPD) GI History: Denies: Hx Ulcer History: Denies: Hx Renal Disease Sensory History: Denies: Hx Hearing Aid Neurological History: Reports: Hx Seizures Psychiatric History: Reports: Hx Anxiety Denies: Hx Panic Disorder - Cancer History Hx Chemotherapy: No Hx Radiation Therapy: No - Surgical History Surgery Procedure, Year, and Place: 06/17 IN [facility] LIPOMA REMOVED ON LEFT SIDE Infectious Disease History: No Infectious Disease History: Reports: History Other Infectious Disease - herpes Denies: Hx Clostridium Difficile, Hx Hepatitis, Hx Human Immunodeficiency Virus (HIV), Hx of Known/Suspected MRSA, Hx Shingles, Hx Tuberculosis, Hx Known/ Suspected VRE, Hx Known/Suspected VRSA, Traveled Outside the in Last 30 Days - Family History Known Family History: Positive: Hypertension, Diabetes, Other - copd Family History: NON CONTRIBUTORY - Social History Alcohol Use: None Hx Substance Use: No Substance Use Type: Reports: None Hx Tobacco Use: Yes Smoking Status (MU): Former Smoker Type: Cigars Amount Used/How Often: "1 from time to time" Have You Smoked in the Last Year: Yes Review of Systems Negative: Fever Musculoskeletal: Other - R tooth pain All Other Systems Reviewed And Are Negative: Yes Physical Exam - Summary Physical Exam Summary: Appearance: Well appearing, no pain distress Skin: warm, dry, reflects adequate perfusion Head/face: tenderness over R teeth 27-28 Eyes: EOMI, WAYLON ENT: normal Neck: supple, non-tender Respiratory: CTA, breath sounds present Cardiovascular: RRR, pulses symmetrical Abdomen: non-tender, soft Musculoskeletal: normal, strength/ROM intact Neuro: normal, sensory motor intact, A&Ox3 Triage Information Reviewed: Yes Vital Signs On Initial Exam: Initial Vitals Temp Pulse Resp BP Pulse Ox 97.8 F 80 16 118/73 98 10/10/18 02:49 10/10/18 02:49 10/10/18 02:49 10/10/18 02:49 10/10/18 02:49 Vital Signs Reviewed: Yes Diagnostics - Vital Signs Vital Signs Temp Pulse Resp BP Pulse Ox 10/10/18 02:49 97.8 F 80 16 118/73 98 - Laboratory Lab Statement: Any lab studies that have been ordered have been reviewed, and results considered in the medical decision making process. EENT Course/Dx - Course Course Of Treatment: This patient is a 28 year old F presenting to ED with a chief complaint of R top tooth pain since four days ago. In the ED course, patient received Cleocin and Percocet. Patient will be discharged with dx of dental pain. Patient understands and agrees with this plan. - Differential Diagnoses Differential Diagnoses: Dental Caries - Diagnoses Provider Diagnoses: Pain, dental Discharge - Sign-Out/Discharge Documenting (check all that apply): Patient Departure - Discharge Patient Received Moderate/Deep Sedation with Procedure: No - Discharge Plan Condition: Stable Disposition: HOME Prescriptions: Clindamycin HCl 300 mg PO QID #40 capsule Fluconazole [Diflucan 150 MG (NF)] 150 mg PO ONCE #1 tab Oxycodone HCl/Acetaminophen [Percocet] 1 tab PO TID #6 tab MDD 3 Patient Education Materials: Toothache (ED) Referrals: Cr Barr MD [Primary Care Provider] - 3 Days Additional Instructions: Follow-up with your primary care provider in three days. RETURN TO THE ER FOR WORSENING OR CHANGING SYMPTOMS. - Billing Disposition and Condition Condition: STABLE Disposition: Home - Attestation Statements Document Initiated by Scribe: Yes Documenting Scribe: Urban Manley Provider For Whom Scribe is Documenting (Include Credential): Adam Castillo MD Scribe Attestation: Urban Norris, scribed for Adam Castillo MD on 10/10/18 at 0441. Scribe Documentation Reviewed: Yes Provider Attestation: The documentation as recorded by the scribe, Urban Manley accurately reflects the service I personally performed and the decisions made by me, Adam Castillo MD Status of Scribe Document: Viewed
[2018-10-10 04:05] VITALS: BP 126/85
== END | disposition home or self-care (01) ==
LOC: ED 02:43
DX: K08.89 Other specified disorders of teeth and supporting structures (principal); Z87.891 Personal history of nicotine dependence
CPT/HCPCS: 99282; A9270-GY